=== PATIENT | female | born 1985 | race Caucasian/White ===

== ENCOUNTER 2019-08-03 22:55 | Emergency (ER) | payer OTHER ==
[2019-08-03 23:02] VITALS: BP 137/89; PULSE 85; TEMP 97.7; BMI 39.5
--- NOTE | 2019-08-04 10:40 | EKG ---
Test Reason : Blood Pressure : / mmHG Vent. Rate : 079 BPM Atrial Rate : 079 BPM P-R Int : 162 ms QRS Dur : 090 ms QT Int : 362 ms P-R-T Axes : 051 025 033 degrees QTc Int : 415 ms NORMAL SINUS RHYTHM NORMAL ECG NO PREVIOUS ECGS AVAILABLE Confirmed by YECENIA CHING, SUNSHINE ([id number]) on 08/04/2019 10:39:54 AM Referred By: Confirmed By:SUNSHINE KEENE MD
== END 2019-08-04 00:27 | disposition left against medical advice (07) ==
LOC: JER 22:55
DX: Z53.21 Procedure and treatment not carried out due to patient leaving prior to being seen by health care provider (principal)
CPT/HCPCS: 93005; 93010; 99281-25

== ENCOUNTER 2019-08-29 16:10 | Emergency (ER) | payer OTHER ==
[2019-08-29 16:17] VITALS: BP 115/76; PULSE 80; TEMP 97.9; BMI 39.5
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
== END 2019-08-29 17:57 | disposition home or self-care (01) ==
LOC: JERFT 16:10
DX: M54.2 Cervicalgia (principal); M25.561 Pain in right knee; M25.562 Pain in left knee; V43.62XA Car passenger injured in collision with other type car in traffic accident, initial encounter; Y92.414 Local residential or business street as the place of occurrence of the external cause; Y93.89 Activity, other specified; Y99.8 Other external cause status
CPT/HCPCS: 99281-25

== ENCOUNTER 2019-11-08 19:22 | Emergency (ER) | payer OTHER ==
[2019-11-08 20:19] VITALS: BMI 40.6
--- NOTE | 2019-11-08 20:26 | PDOC ---
Rapid Medical Evaluation Chief Complaint: Chest Pain Time Seen by Provider: 11/08/19 20:15 Medical Evaluation: Allergies Allergy/AdvReac Type Severity Reaction Status Date / Time No Known Allergies Allergy Verified 11/08/19 20:19 Vital Signs Temp Pulse Resp BP Pulse Ox 99.0 F 100 H 22 H 119/73 100 11/08/19 20:17 11/08/19 20:17 11/08/19 20:17 11/08/19 20:17 11/08/19 20:17 11/08/19 20:25 I have performed a brief in-person evaluation of this patient. The patient presents with a chief complaint of: CP. Morbidly obesed. Pertinent physical exam findings:HR 100 w/ RR 22 I have ordered the following: ekg/cxr The patient will proceed to the ED for further evaluation Discharge Disposition - Diagnosis Chest pain Qualifiers: Chest pain type: unspecified Qualified Code(s): R07.9 - Chest pain, unspecified - Referrals - Patient Instructions - Post Discharge Activity
[2019-11-08] MEDS ORDERED: ASPIRIN 325 MG ENTERIC COATED TABLET (FP) PO ONE (21:58)
--- NOTE | 2019-11-08 21:58 | PDOC ---
History of Present Illness - General Chief Complaint: Chest Pain Stated Complaint: CHEST PAIN/RADIATING TO LEFT ARM Time Seen by Provider: 11/08/19 20:15 History Source: Patient - History of Present Illness Initial Comments: 11/08/19 22:14 Ms. Caban is a 34 y/o woman w/no PMH p/w one day of chest pain. 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 She reports standing up and stepping outside for air, and shortly after began to experience 7/10 chest pain radiating to her L arm and up her L neck. She reports having similar previous episodes attributed to anxiety, but that this felt worse than prior events. She denies any hx of DVTs or PEs. She denies any pain or sob at this time. Past History - Past Medical History Allergies/Adverse Reactions: Allergies Allergy/AdvReac Type Severity Reaction Status Date / Time No Known Allergies Allergy Verified 11/08/19 20:19 Home Medications: Ambulatory Orders Cyclobenzaprine HCl 10 mg PO HS #10 tablet 08/29/19 Diclofenac Sodium [Voltaren -] 75 mg PO BID #20 tablet. 08/29/19 CVA: No COPD: No - Psycho Social/Smoking Cessation Hx Smoking History: Never smoked Have you smoked in the past 12 months: No Information on smoking cessation initiated: No Hx Alcohol Use: No Drug/Substance Use Hx: No Review of Systems - Review of Systems Able to Perform ROS?: Yes Comments:: 11/08/19 23:07 GENERAL/CONSTITUTIONAL: No fever or chills. No weakness. HEAD, EYES, EARS, NOSE AND THROAT: No change in vision. No ear pain or discharge. No sore throat. CARDIOVASCULAR: Chest pain, shortness of breath RESPIRATORY: No cough, wheezing, or hemoptysis. GASTROINTESTINAL: No nausea, vomiting, diarrhea or constipation. GENITOURINARY: No dysuria, frequency, or change in urination. MUSCULOSKELETAL: No joint or muscle swelling or pain. No neck or back pain. SKIN: No rash NEUROLOGIC: No headache, vertigo, loss of consciousness, or change in strength/s ensation. ENDOCRINE: No increased thirst. No abnormal weight change HEMATOLOGIC/LYMPHATIC: No anemia, easy bleeding, or history of blood clots. ALLERGIC/IMMUNOLOGIC: No hives or skin allergy. *Physical Exam - Vital Signs Last Vital Signs Temp Pulse Resp BP Pulse Ox 99.0 F 100 H 22 H 119/73 100 11/08/19 20:17 11/08/19 20:17 11/08/19 20:17 11/08/19 20:17 11/08/19 20:17 - Physical Exam 11/08/19 23:08 GENERAL: Awake, alert, and fully oriented, in no acute distress HEAD: No signs of trauma, normocephalic, atraumatic EYES: PERRLA, EOMI, sclera anicteric, conjunctiva clear ENT: Auricles normal inspection, hearing grossly normal, nares patent, oropharynx clear without exudates. Moist mucosa NECK: Normal ROM, supple, no lymphadenopathy, JVD, or masses LUNGS: No distress, speaks full sentences, clear to auscultation bilaterally HEART: Tenderness over chest wall. Regular rate and rhythm, normal S1 and S2, no murmurs, rubs or gallops, peripheral pulses normal and equal bilaterally. ABDOMEN: Soft, nontender, normoactive bowel sounds. No guarding, no rebound. No masses EXTREMITIES : Normal inspection, Normal range of motion, no edema. No clubbing or cyanosis NEUROLOGICAL: Cranial nerves II through XII grossly intact. Normal speech, normal gait, no focal sensorimotor deficits SKIN: Warm, Dry, normal turgor, no rashes or lesions noted Heart Score/ECG Review - History History: Moderately suspicious - Electrocardiogram EKG: Normal - Age Age: </= 45 - Risk Factors Risk Factors Heart Score: Yes Hx Obesity Based on the list above the patient has:: 1-2 risk factors - Troponin Troponin: </= normal limit - Score Heart Score - Total: 2 ED Treatment Course - LABORATORY CBC & Chemistry Diagram: 11/08/19 22:20 11/08/19 22:20 Medical Decision Making - Medical Decision Making 11/08/19 23:09 34F w/no PMH p/w one day of chest tightness, sob, now resolved. PERC - 0. Ddx includes ACS, MSK pain, anxiety. PE unlikely given PERC score. Plan: CBC CMP EKG CXR Troponin ASA 324 mg Dispo: Pending troponin, likely discharge --- CBC - wnl CMP - wnl Troponin - negative 11/08/19 23:36 Discussed results with patient. She refuses XR, and will follow up with her PCP in the next 2-3 days. 11/09/19 01:15 Repeat trop - negative Plan for discharge Discharge - Discharge Information Problems reviewed: Yes Clinical Impression/Diagnosis: Chest pain Qualifiers: Chest pain type: unspecified Qualified Code(s): R07.9 - Chest pain, unspecified Condition: Stable Disposition: HOME - Admission No - Follow up/Referral - Patient Discharge Instructions Patient Printed Discharge Instructions: DI for Atypical Chest Pain, DI for Chest Pain Additional Instructions: You were seen in the ER for chest pain. Your bloodwork was normal - no signs of a heart attack at this time. We are recommending a chest X-ray as well. Please be sure to follow up with your primary care provider as soon as possible, in the next 2-3 days. Return to the ER if you develop severe chest pain, difficulty breathing, weakness. - Post Discharge Activity
[2019-11-08] MEDS ORDERED: ASPIRIN 325 MG ENTERIC COATED TABLET (FP) ONE (22:12)
--- NOTE | 2019-11-08 22:18 | PDOC ---
Attending Attestation - Resident Resident Name: Stewart Larsen - ED Attending Attestation I have performed the following: I have examined & evaluated the patient, The case was reviewed & discussed with the resident, I agree w/resident's findings & plan - HPI HPI: 11/08/19 23:49 see resident hpi - Physicial Exam PE: 11/08/19 23:50 see resident exam - Medical Decision Making 11/08/19 23:50 34-year-old female with an episode of chest pain possibly associated with anxiety now resolved EKG is within normal limits Plan for troponin x2, if negative will DC with outpatient follow-up
[2019-11-08 22:31] LABS: EOS % 1.6 % (0-4.5); HEMATOCRIT 36.1 % (32.4-45.2); HEMOGLOBIN 12.1 GM/dL (10.7-15.3); MCH 27.9 pg (25.7-33.7); MCHC 33.5 g/dl (32.0-36.0); MEAN CELL VOLUME 83.5 fl (80-96); MEAN PLT VOLUME 10.9 fl (7.5-11.1); MONO % 8.3 % (3.8-10.2); NEUT % 51.1 % (42.8-82.8); PLATELET COUNT 202 K/MM3 (134-434); RBC 4.32 M/mm3 (3.60-5.2); RDW 15.8 % (11.6-15.6); WHITE BLOOD COUNT 5.5 K/mm3 (4.0-10.0)
[2019-11-08 22:39] LABS: INR 1.18 (0.83-1.09); PROTHROMBIN TIME (PATIENT) 13.9 SEC (9.7-13.0)
[2019-11-08 23:10] LABS: ALBUMIN 3.6 g/dl (3.4-5.0); ALK PHOS 45 U/L (45-117); ANION GAP 5 MMOL/L (8-16); BILIRUBIN,TOTAL 0.6 mg/dL (0.2-1); BLOOD UREA NITROGEN 16.8 mg/dL (7-18); CALCIUM 9.1 mg/dL (8.5-10.1); CHLORIDE 103 mmol/L (98-107); CO2 28 mmol/L (21-32); CREATININE 0.9 mg/dL (0.55-1.3); GLUCOSE,RANDOM 98 mg/dL (74-106); POTASSIUM 4.5 mmol/L (3.5-5.1); SGOT/AST 16 U/L (15-37); SGPT/ALT 28 U/L (13-61); SODIUM 136 mmol/L (136-145); TOT PROT 7.5 g/dl (6.4-8.2)
[2019-11-08 23:40] VITALS: BP 113/62; PULSE 82; TEMP 98.2
--- NOTE | 2019-11-09 11:01 | EKG ---
Test Reason : Blood Pressure : / mmHG Vent. Rate : 098 BPM Atrial Rate : 098 BPM P-R Int : 162 ms QRS Dur : 090 ms QT Int : 336 ms P-R-T Axes : 037 013 024 degrees QTc Int : 428 ms NORMAL SINUS RHYTHM NORMAL ECG WHEN COMPARED WITH ECG OF 03-AUG-2019 23:06, NO SIGNIFICANT CHANGE WAS FOUND Confirmed by Rafal Hayes MD ([id number]) on 11/09/2019 11:00:36 AM Referred By: Confirmed By:Rafal Hayes MD
== END 2019-11-09 01:30 | disposition home or self-care (01) ==
LOC: JER 19:22
DX: R07.9 Chest pain, unspecified (principal); E66.01 Morbid (severe) obesity due to excess calories; Z68.41 Body mass index [BMI] 40.0-44.9, adult
CPT/HCPCS: 36415; 80053; 82550; 84484; 85025; 85610; 85730; 93005; 93010; 99284-25

== ENCOUNTER 2020-03-18 06:48 | Emergency (ER) | payer OTHER ==
[2020-03-18 07:18] VITALS: TEMP 97.8; BMI 31.6
--- NOTE | 2020-03-18 07:43 | PDOC ---
History of Present Illness - General Chief Complaint: Migraine Headache Stated Complaint: CLUSTER HEADACHE Time Seen by Provider: 03/18/20 07:22 - History of Present Illness Initial Comments: Ashley Irizarry is a 34 y/o female with PMH significant for cluster headaches presenting today with headache. Reports left sided parietal headache and left retro-orbital stabbing pain. Reports that this started a week ago. She has not had cluster headaches for the past several years. She was prescribed sumatriptan and ergotamine but has not been able to get these filled due to not having a PCP. Last cluster headache episode was over 3-4 years ago. Headache starts at 5am every day. No fever. Reports nausea and vomiting several times over the past week. No chest pain/shortness of breath. No vision changes. No fall. No neck pain. No abdominal pain. No jaw claudication. Past History - Medical History Allergies/Adverse Reactions: Allergies Allergy/AdvReac Type Severity Reaction Status Date / Time No Known Allergies Allergy Verified 03/18/20 07:10 Home Medications: Ambulatory Orders Famotidine [Pepcid -] 20 mg PO DAILY #20 tablet 01/23/20 CVA: No COPD: No Other medical history: "cluster headaches" last attack @ 2014 - Immunization History Immunization Up to Date: Yes - Psycho-Social/Smoking History Smoking History: Never smoked Have you smoked in the past 12 months: No - Substance Abuse Hx (Audit-C & DAST Scrn) How often the patient has a drink containing alcohol: Monthly or less Score: In Men: 4 or > Positive; In Women: 3 or > Positive: 1 Screen Result (Pos requires Nsg. Audit-10AR): Negative In the last yr the pt used illegal drug/Rx for NonMed reason: No Score: Yes response is considered Positive: 0 Screen Result (Positive result requires Nsg. DAST-10): Negative Review of Systems - Review of Systems Comments:: GENERAL/CONSTITUTIONAL: No fever or chills. No weakness._ HEAD, EYES, EARS, NOSE AND THROAT: No change in vision. No change in hearing. No sore throat._ CARDIOVASCULAR: No chest pain or shortness of breath_ RESPIRATORY: Denies cough, hemoptysis_ GASTROINTESTINAL: Reports nausea and vomiting. No diarrhea or constipation._ GENITOURINARY: No dysuria, frequency, or change in urination._ MUSCULOSKELETAL: No joint or muscle swelling or pain. No neck or back pain._ SKIN: No rash_ NEUROLOGIC: Reports headache. No vertigo, loss of consciousness, or change in strength/sensation._ ENDOCRINE: No increased thirst. No abnormal weight change_ HEMATOLOGIC/LYMPHATIC: No anemia, easy bleeding, or history of blood clots._ ALLERGIC/IMMUNOLOGIC: No hives or skin allergy._ *Physical Exam - Vital Signs Last Vital Signs Temp Pulse Resp BP Pulse Ox 97.8 F 80 20 130/78 99 03/18/20 07:17 03/18/20 07:17 03/18/20 07:17 03/18/20 07:17 03/18/20 07:17 - Physical Exam GENERAL: Awake, alert, and oriented to person/place/time, in no acute distress_ HEAD: No signs of trauma, normocephalic, atraumatic. No temporal TTP. EYES: PERRLA, EOMI, sclera anicteric, conjunctiva clear. No nystagmus on far lateral gaze. ENT: Hearing grossly normal, nares patent, oropharynx clear without exudates. No uvular deviation. Moist mucosa_ NECK: Normal ROM, supple, no lymphadenopathy, JVD, or masses_ LUNGS: No distress, speaks in full sentences, clear to auscultation bilaterally _ HEART: Regular rate and rhythm, normal S1 and S2, no murmurs appreciated, peripheral pulses normal and equal bilaterally._ ABDOMEN: Soft, nontender, normoactive bowel sounds. No guarding, no rebound. No masses_ EXTREMITIES: Normal inspection, Normal range of motion, no edema. No clubbing or cyanosis_ NEUROLOGICAL: Mental status: A/Ox3 CN II-XII tested and intact. Sensation intact to sharp/dull differentiation in all extremities. Motor: Normal tone and bulk. No abnormal movements appreciated. No pronator drift. Strength tested and 5/5 in bilateral wrist flexion/extension, elbow flexion/extension, shoulder abduction, straight leg raise, knee flexion/extension, ankle dorsiflexion/plantarflexion. Patient ambulates with a steady gait. Coordination: Finger to nose and heel to teran testing intact bilaterally. SKIN: Warm, Dry, normal turgor, no rashes or lesions noted_ Medical Decision Making - Medical Decision Making 03/18/20 08:31 34F presenting with left parietal headache and left retroorbital stabbing pain for the past week. Starts at 5am every day. Hx of migraine headaches. No change in quality. Previously prescribed sumatriptan and ergotamine but has not had PCP or cluster headache symptoms for several years. -O2 -imitrex 03/18/20 09:58 Pt reassessed. Reports resolution of headache. Repeat neuro exam wnl. Plan to d/c home with PCP f/u and neuro f/u. All questions answered. Return precautions given. Pt verbalized understanding and agreement with plan. Discharge - Discharge Information Problems reviewed: Yes Clinical Impression/Diagnosis: Cluster headache Qualifiers: Headache chronicity pattern: episodic headache Intractability: not intractable Qualified Code(s): G44.019 - Episodic cluster headache, not intractable Condition: Stable - Admission No - Follow up/Referral Referrals: Zandra Plascencia MD [Primary Care Provider] - Oumar Torre MD [Staff Physician] - Faheem Restrepo MD [Staff Physician] - [facility] [place] [facility] [place] Group] - Patient Discharge Instructions Patient Printed Discharge Instructions: DI for Cluster Headache - Post Discharge Activity
[2020-03-18] MEDS ORDERED: SUMATRIPTAN SUCCINATE 6 MG/0.5 ML VIAL SQ ONE (08:02)
[2020-03-18] MEDS ORDERED: SUMATRIPTAN SUCCINATE 6 MG/0.5 ML VIAL ONE (08:09)
--- NOTE | 2020-03-18 08:10 | PDOC ---
Attending Attestation - Resident Resident Name: CornellRafal - ED Attending Attestation I have performed the following: I have examined & evaluated the patient, The case was reviewed & discussed with the resident, I agree w/resident's findings & plan, Exceptions are as noted - HPI HPI: 03/18/20 08:07 34YOF with h/o cluster headaches and obesity, who p/w left-sided WAGONER behind her left eye similar to prior episodes, episodic now for the past week. She states she has not had headaches for about the past 3-4 years, but over the past several days she has had this headache every night similar to her prior h/o cluster headaches. It has been associated with 2 episodes NBNB vomiting, similar to prior headaches as well, but no f/c, chest pain, neck pain, back pain, abdominal pain, dysuria, vaginal bleeding/discharge, dizziness/lightheadedness, vision problems, speech problems, difficulty balancing or walking, n/t/w focally, or other symptoms. She previously saw a neurologist but has not been seeing any doctors for the past 4 years. 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 - Physicial Exam PE: 03/18/20 08:09 GENERAL: nontoxic-appearing, A/Ox4, no distress, answers questions appropriately, obese, very pleasant HEENT: PERRLA, EOMI, moist mucous membranes NECK/BACK: no midline ttp, no spinal stepoff or deformity, no hematoma, full ROM, neck supple CARDIOVASCULAR: regular rate/rhythm, no MGR, strong peripheral pulses, capillary refill <2 seconds, extremities wwp, no edema LUNGS/RESPIRATORY: no respiratory distress, CTAB GI/ABDOMEN: symmetric [id number]-[id number], normoactive BS, soft, no ttp, no midline pulsatile masses : no CVA tenderness MSK/EXTREMITIES: no muscle atrophy, no acute deformity SKIN: warm and dry, no pallor, no jaundice, no rash, no pathologic-appearing bruising, no skin breakdown, no cuts, no lesions NEUROLOGICAL: GCS 15, CN II-XII grossly intact, 5/5 strength proximally and distally, no facial droop, normal gait - Medical Decision Making 03/18/20 08:08 34YOF p/w headache, no reported mechanism for injury, no new red flag symptoms (see HPI). WAGONER not worse on awakening in the AM, no B symptoms, trauma, fever, syncope, vision loss, n/t/w focally, sudden onset, etc. Initial Vital Signs Temp Pulse Resp BP Pulse Ox 97.8 F 80 20 130/78 99 03/18/20 07:17 03/18/20 07:17 03/18/20 07:17 03/18/20 07:17 03/18/20 07:17 DDX IBNLT primary WAGONER syndrome (tension/migraine/cluster/other incl. primary cough WAGONER, exertional WAGONER, postcoital WAGONER), trigeminal neuralgia, zoster, SAH (chad. sudden onset), venous sinus thrombosis (chad. OCP//menstruating), subdural or epidural hematoma (chad. after trauma or childbirth), ruptured/acutely expanded aneurysm, preeclampsia/eclampsia, encephalitis, meningitis, glaucoma, atypical PNA, idiopathic intracranial hypertension, GCA (uncommon <50 yo), mass lesion, brain metastasis (chad. known CA Pts and/or WAGONER with increasing severity/frequency), brain abscess (chad. immunocompromised Pts), DKA, CO poisoning, etc. W/U ordered: None at this time, HCT not indicated and patient does not feel strongly about it either. TX ordered: 100% O2, sumatriptan Last Vital Signs Temp Pulse Resp BP Pulse Ox 97.8 F 72 20 125/81 100 03/18/20 07:17 03/18/20 09:58 03/18/20 09:58 03/18/20 09:58 03/18/20 09:58 This Pt has gotten significant relief of symptoms while in the ED. On last reassessment, vitals are wnl, pain is reasonably controlled, and exam is benign. Workup is not concerning for emergency-level pathology at this time. This Pt is appropriate for discharge home w/ close outpatient f/u. She is comfortable with this plan. She will take Motrin and/or Tylenol for pain, Rx given for 1 week of sumatriptan in case she needs it She will follow up with new PCP this week, referral information given for [facility]. Referral given for Neurology for f/u. Specific return precautions are discussed and they will come back to the ER if necessary. Discharge - Discharge Information Problems reviewed: Yes Clinical Impression/Diagnosis: Headache Qualifiers: Headache type: unspecified Headache chronicity pattern: unspecified pattern Intractability: not intractable Qualified Code(s): R51 - Headache Condition: Stable Disposition: HOME - Admission No - Additional Discharge Information Prescriptions: Sumatriptan Succinate [Imitrex -] 100 mg PO ONCE PRN 7 Days #14 tablet PRN Reason: Headache - Follow up/Referral Referrals: [facility] [place] [facility] [place]Provider Group] Oumar Torre MD [Staff Physician] - Faheem Restrepo MD [Staff Physician] - Zandra Plascencia MD [Primary Care Provider] - - Patient Discharge Instructions Patient Printed Discharge Instructions: DI for Cluster Headache Additional Instructions: Please take sumatriptan 100 mg once a day as needed for your cluster headache. Please make a follow up appointment with your primary care doctor and a neurologist (referrals provided here). If you experience any new, worsening, or concerning symptoms, including sudden or worsening headache, nausea/vomiting, fever, change in headache, loss of balance, loss of sensation, numbness, tingling, or any other concerns, please return to the emergency room. - Post Discharge Activity
[2020-03-18 09:59] VITALS: BP 125/81; PULSE 72
== END 2020-03-18 10:57 | disposition home or self-care (01) ==
LOC: JER 06:48
DX: G44.019 Episodic cluster headache, not intractable (principal)
CPT/HCPCS: 99284-25

== ENCOUNTER 2020-07-26 06:40 | Emergency (ER) | payer OTHER ==
[2020-07-26 06:59] VITALS: TEMP 98.1; BMI 36.5
[2020-07-26] MEDS ORDERED: ACETAMINOPHEN 325 MG TABLET (FP) PO ONE (07:41)
[2020-07-26] MEDS ORDERED: RANITIDINE HCL 150 MG/10 ML UNIT-DOSE PO ONE (07:41)
[2020-07-26] MEDS ORDERED: MAG HYDROX/AL HYDROX/SIMETH -MYLANTA- ORAL SUSPENSION PO ONE (07:41)
[2020-07-26] MEDS ORDERED: PANTOPRAZOLE 40 MG TABLET PO ONE (08:05)
[2020-07-26] MEDS ORDERED: ACETAMINOPHEN 325 MG TABLET (FP) ONE (08:05)
[2020-07-26] MEDS ORDERED: MAG HYDROX/AL HYDROX/SIMETH 30 ML UNIT-DOSE CUP ONE (08:05)
[2020-07-26] MEDS ORDERED: PANTOPRAZOLE 40 MG TABLET ONE (08:06)
[2020-07-26 09:15] LABS: BASO % 0.6 % (0-2.0); EOS % 2.4 % (0-4.5); HEMATOCRIT 38.8 % (32.4-45.2); HEMOGLOBIN 12.8 GM/dL (10.7-15.3); LYMPH % 36.1 % (8-40); MCH 27.9 pg (25.7-33.7); MEAN CELL VOLUME 84.4 fl (80-96); MEAN PLT VOLUME 11.9 fl (7.5-11.1); MONO % 10.2 % (3.8-10.2); NEUT % 50.7 % (42.8-82.8); PLATELET COUNT 202 K/MM3 (134-434); RDW 15.9 % (11.6-15.6); WHITE BLOOD COUNT 5.5 K/mm3 (4.0-10.0)
[2020-07-26 09:40] LABS: CHLORIDE 104 mmol/L (98-107); POTASSIUM 4.4 mmol/L (3.5-5.1); SODIUM 137 mmol/L (136-145)
[2020-07-26 09:42] LABS: ALBUMIN 3.8 g/dl (3.4-5.0); BLOOD UREA NITROGEN 16.6 mg/dL (7-18); CALCIUM 9.2 mg/dL (8.5-10.1)
[2020-07-26 09:43] LABS: ANION GAP 5 MMOL/L (8-16); CO2 29 mmol/L (21-32); GLUCOSE,RANDOM 93 mg/dL (74-106)
[2020-07-26 09:46] LABS: CREATININE 0.8 mg/dL (0.55-1.3); SGOT/AST 14 U/L (15-37); SGPT/ALT 24 U/L (13-61)
[2020-07-26 09:47] LABS: BILIRUBIN,TOTAL 0.4 mg/dL (0.2-1); TOT PROT 7.8 g/dl (6.4-8.2)
[2020-07-26 09:49] LABS: ALK PHOS 41 U/L (45-117)
[2020-07-26 12:02] VITALS: BP 118/76; PULSE 75
== END 2020-07-26 12:10 | disposition home or self-care (01) ==
LOC: JER 06:40
DX: K29.70 Gastritis, unspecified, without bleeding (principal)
CPT/HCPCS: 36415; 71046-TC-FY; 80053; 83690; 84484; 84703; 85025; 93005; 93010; 99285-25; C9803; U0003

== ENCOUNTER 2020-08-03 18:49 | Emergency (ER) | payer OTHER ==
[2020-08-03 19:00] VITALS: TEMP 97.9; BMI 36.5
[2020-08-03] MEDS ORDERED: LACTATED RINGERS SOLUTION 1000 ML INFUS.BAG IV ONE (20:47)
[2020-08-03 21:03] LABS: EPI CELLS 13 /uL (0-25.1); HYALINE CASTS 0 /uL (0-3.1); PH,URINE 6.5 (5.0-8.0); URINE APPEARANCE CLEAR; URINE BACTERIA 8406 /uL (0-1359); URINE BILIRUBIN NEGATIVE (NEGATIVE); URINE COLOR YELLOW; URINE GLUCOSE (UA) NEGATIVE (NEGATIVE); URINE KETONE NEGATIVE (NEGATIVE); URINE LEUK ESTERASE 1+ (NEGATIVE); URINE NITRITE POSITIVE (NEGATIVE); URINE PROTEIN NEGATIVE (NEGATIVE); URINE RBC 8 /uL (0-23.9); URINE UROBILINOGEN 0.2 mg/dL (0.2-1.0); URINE WBC 33 /uL (0-25.8)
[2020-08-03 21:10] LABS: HEMATOCRIT 35.3 % (32.4-45.2); HEMOGLOBIN 11.7 GM/dL (10.7-15.3); MCH 27.8 pg (25.7-33.7); MCHC 33.1 g/dl (32.0-36.0); MEAN PLT VOLUME 11.8 fl (7.5-11.1); PLATELET COUNT 192 K/MM3 (134-434); RDW 15.7 % (11.6-15.6); WHITE BLOOD COUNT 5.8 K/mm3 (4.0-10.0)
[2020-08-03 21:40] LABS: INR 1.13 (0.83-1.09); PROTHROMBIN TIME (PATIENT) 13.9 SEC (9.7-13.0)
[2020-08-03 21:43] LABS: ACTIVATED PTT 32.3 SECONDS (25.2-36.5)
[2020-08-03 21:45] LABS: POTASSIUM 4.2 mmol/L (3.5-5.1)
[2020-08-03 21:46] LABS: CALCIUM 9.6 mg/dL (8.5-10.1)
[2020-08-03 21:47] LABS: ALBUMIN 3.7 g/dl (3.4-5.0); BLOOD UREA NITROGEN 20.9 mg/dL (7-18)
[2020-08-03 21:50] LABS: CREATININE 0.8 mg/dL (0.55-1.3)
[2020-08-03 21:52] LABS: BILIRUBIN,TOTAL 0.4 mg/dL (0.2-1); TOT PROT 7.7 g/dl (6.4-8.2)
[2020-08-03] MEDS ORDERED: CEPHALEXIN MONOHYDRATE 500 MG CAPSULE (UD) PO ONE (21:57)
[2020-08-03] MEDS ORDERED: CEPHALEXIN MONOHYDRATE 500 MG CAPSULE (UD) ONE (22:04)
[2020-08-03 22:15] VITALS: BP 119/81; PULSE 74
== END 2020-08-03 22:15 | disposition home or self-care (01) ==
LOC: JER 18:49
DX: K62.5 Hemorrhage of anus and rectum (principal); N39.0 Urinary tract infection, site not specified
CPT/HCPCS: 36415; 80053; 81003; 82272; 84703; 85027; 85610; 85730; 99284-25

== ENCOUNTER 2020-12-22 21:22 | Emergency (ER) | payer OTHER ==
[2020-12-22 21:25] VITALS: TEMP 97; BMI 37.5
[2020-12-22] MEDS ORDERED: LORazepam 2 MG TABLET PO ONE (21:35)
[2020-12-22] MEDS ORDERED: LORazepam 1 MG TABLET ONE (21:42)
[2020-12-22 22:10] LABS: BASO % 0.5 % (0-2.0); EOS % 3.7 % (0-4.5); HEMATOCRIT 36.8 % (32.4-45.2); HEMOGLOBIN 12.4 GM/dL (10.7-15.3); LYMPH % 62.5 % (8-40); MCH 28.3 pg (25.7-33.7); MCHC 33.6 g/dl (32.0-36.0); MEAN CELL VOLUME 84.1 fl (80-96); MEAN PLT VOLUME 11.5 fl (7.5-11.1); MONO % 7.1 % (3.8-10.2); NEUT % 26.2 % (42.8-82.8); PLATELET COUNT 191 K/MM3 (134-434); RBC 4.38 M/mm3 (3.60-5.2); RDW 15.8 % (11.6-15.6); WHITE BLOOD COUNT 6.2 K/mm3 (4.0-10.0)
[2020-12-22 22:46] LABS: CHLORIDE 107 mmol/L (98-107); SODIUM 139 mmol/L (136-145)
[2020-12-22 22:48] LABS: ANION GAP 11 MMOL/L (8-16); BLOOD UREA NITROGEN 14.5 mg/dL (7-18); CALCIUM 9.1 mg/dL (8.5-10.1); CO2 20 mmol/L (21-32)
[2020-12-22 22:49] LABS: ALBUMIN 3.7 g/dl (3.4-5.0); GLUCOSE,RANDOM 113 mg/dL (74-106)
[2020-12-22 22:52] LABS: CREATININE 1.1 mg/dL (0.55-1.3); SGOT/AST 36 U/L (15-37); SGPT/ALT 25 U/L (13-61)
[2020-12-22 22:53] LABS: BILIRUBIN,TOTAL 0.6 mg/dL (0.2-1)
[2020-12-22 22:54] LABS: ALK PHOS 43 U/L (45-117)
[2020-12-22 23:07] LABS: PLATELET ESTIMATE ADEQUATE
[2020-12-23 00:33] VITALS: BP 113/60; PULSE 93
== END 2020-12-23 00:38 ==
LOC: JER 21:22
DX: F12.90 Cannabis use, unspecified, uncomplicated (principal)
CPT/HCPCS: 36415; 71046-TC-FY; 71275-TC; 80053; 82550; 82553; 84484; 84703; 85025; 85379; 93005; 93010; 99285-25; Q9967

== ENCOUNTER 2021-05-02 06:43 | Emergency (ER) | payer OTHER ==
[2021-05-02 07:03] VITALS: BP 106/76; PULSE 85; TEMP 98.8; BMI 28.7
== END 2021-05-02 07:50 | disposition left against medical advice (07) ==
LOC: JER 06:43
DX: R05 Cough (principal); R06.02 Shortness of breath
CPT/HCPCS: 99281-25

== ENCOUNTER 2021-05-06 00:37 | Emergency (ER) | payer OTHER ==
[2021-05-06 00:45] VITALS: BP 115/88; PULSE 87; TEMP 98.5; BMI 37.5
[2021-05-06] MEDS ORDERED: IBUPROFEN 600 MG TABLET (FP) PO ONE ×2 (01:28→01:51)
[2021-05-06] MEDS ORDERED: DEXAMETHASONE 4 MG TABLET (FP) PO ONE (01:30)
[2021-05-06] MEDS ORDERED: DEXAMETHASONE 4 MG TABLET (FP) ONE ×2 (01:51)
== END 2021-05-06 02:00 | disposition home or self-care (01) ==
LOC: JER 00:37
DX: U07.1 COVID-19 (principal)
CPT/HCPCS: 99283-25

== ENCOUNTER 2021-05-06 06:59 | Emergency (ER) | payer OTHER ==
[2021-05-06 07:29] VITALS: TEMP 98.7; BMI 37.5
[2021-05-06] MEDS ORDERED: DEXAMETHASONE LIQUID 0.5 MG/5 ML PO ONE (08:11)
[2021-05-06] MEDS ORDERED: ALBUTEROL SO4 0.083% IH SOL 2.5 MG/3 ML VIAL.NEB. NEB ONE ×3 (08:11→09:25)
[2021-05-06] MEDS ORDERED: DEXAMETHASONE SOD PHOSPHATE 10 MG/1 ML VIAL ONE (08:27)
[2021-05-06] MEDS ORDERED: CASIRIVIMAB/IMDEVIMAB 10 ML in SODIUM CHLORIDE 100 ML IVPB ONE (09:37)
[2021-05-06] MEDS ORDERED: diphenhydrAMINE HCL 25 MG CAPSULE (FP) PO ONE ×3 (09:38→09:50)
[2021-05-06 11:01] LABS: HEMOGLOBIN 13.5 GM/dL (10.7-15.3); MCH 27.9 pg (25.7-33.7); MCHC 33.8 g/dl (32.0-36.0); MEAN CELL VOLUME 82.6 fl (80-96); PLATELET COUNT 161 10^3/uL (134-434); RBC 4.84 M/mm3 (3.60-5.2); RDW 16.4 % (11.6-15.6); WHITE BLOOD COUNT 2.5 K/mm3 (4.0-10.0)
[2021-05-06 11:22] LABS: ALBUMIN 3.8 g/dl (3.4-5.0); BLOOD UREA NITROGEN 8.8 mg/dL (7-18); CALCIUM 8.5 mg/dL (8.5-10.1)
[2021-05-06 11:26] LABS: CREATININE 0.9 mg/dL (0.55-1.3)
[2021-05-06 11:27] LABS: BILIRUBIN,TOTAL 0.4 mg/dL (0.2-1); TOT PROT 8.7 g/dl (6.4-8.2)
[2021-05-06 11:55] LABS: ANISOCYTOSIS 0; HELMET CELLS 0; HOWELL-JOLLY BODIES 0; MACROCYTOSIS 0; OVALOCYTE 0; PLATELET ESTIMATE NORMAL; ROULEAU 0; SICKELED CELLS 0; TARGET CELLS 0; TEAR DROP CELLS 0; TOXIC GRANULATION 0
[2021-05-06 13:05] VITALS: BP 120/81; PULSE 83
== END 2021-05-06 13:05 | disposition home or self-care (01) ==
LOC: JER 06:59
PROC: 3E0F7GC Introduction of Other Therapeutic Substance into Respiratory Tract, Via Natural or Artificial Opening (ICD-10-PCS; principal; 2021-05-06)
PROC: 3E033GC Introduction of Other Therapeutic Substance into Peripheral Vein, Percutaneous Approach (ICD-10-PCS; principal; 2021-05-06)
DX: U07.1 COVID-19 (principal)
CPT/HCPCS: 36415; 80053; 85025; 93005; 93010; 99284-25; M0240; Q0240

== ENCOUNTER 2021-09-03 02:24 | Emergency (ER) | payer OTHER ==
[2021-09-03 02:38] VITALS: BP 109/72; PULSE 83; TEMP 97.7; BMI 38.0
== END 2021-09-03 04:24 | disposition left against medical advice (07) ==
LOC: JER 02:24
DX: R11.10 Vomiting, unspecified (principal)
CPT/HCPCS: 99281-25

== ENCOUNTER 2021-09-10 01:54 | Emergency (ER) | payer OTHER ==
[2021-09-10 02:12] VITALS: BP 113/81; PULSE 81; TEMP 97.9; BMI 37.5
[2021-09-10] MEDS ORDERED: SODIUM CHLORIDE 0.9% 500 ML INFUS.BAG IV ONE (02:20)
[2021-09-10] MEDS ORDERED: ACETAMINOPHEN 1000 MG/100 ML BAG IVPB ONE (02:20)
[2021-09-10] MEDS ORDERED: IBUPROFEN 600 MG TABLET (FP) PO ONE ×2 (02:23→02:39)
[2021-09-10 03:02] LABS: BASO % 0.7 % (0-2.0); EOS % 2.3 % (0-4.5); HEMOGLOBIN 12.1 GM/dL (10.7-15.3); LYMPH % 37.1 % (8-40); MCH 28.1 pg (25.7-33.7); MCHC 33.6 g/dl (32.0-36.0); MEAN CELL VOLUME 83.6 fl (80-96); MEAN PLT VOLUME 11.2 fl (7.5-11.1); MONO % 15.5 % (3.8-10.2); NEUT % 44.4 % (42.8-82.8); PLATELET COUNT 181 10^3/uL (134-434); RBC 4.31 M/mm3 (3.60-5.2); RDW 15.4 % (11.6-15.6); WHITE BLOOD COUNT 3.6 K/mm3 (4.0-10.0)
[2021-09-10 03:19] LABS: CHLORIDE 106 mmol/L (98-107); SODIUM 139 mmol/L (136-145)
[2021-09-10 03:21] LABS: ALBUMIN 3.4 g/dl (3.4-5.0); CALCIUM 8.6 mg/dL (8.5-10.1)
[2021-09-10 03:22] LABS: ANION GAP 7 MMOL/L (8-16); BLOOD UREA NITROGEN 14.5 mg/dL (7-18); CO2 26 mmol/L (21-32); GLUCOSE,RANDOM 112 mg/dL (74-106)
[2021-09-10 03:24] LABS: CREATININE 0.9 mg/dL (0.55-1.3); SGOT/AST 14 U/L (15-37)
[2021-09-10 03:25] LABS: SGPT/ALT 26 U/L (13-61)
[2021-09-10 03:26] LABS: BILIRUBIN,TOTAL 0.2 mg/dL (0.2-1); TOT PROT 7.2 g/dl (6.4-8.2)
[2021-09-10 03:27] LABS: ALK PHOS 41 U/L (45-117)
== END 2021-09-10 04:17 | disposition home or self-care (01) ==
LOC: JER 01:54
PROC: 3E033NZ Introduction of Analgesics, Hypnotics, Sedatives into Peripheral Vein, Percutaneous Approach (ICD-10-PCS; principal; 2021-09-10)
DX: U07.1 COVID-19 (principal)
CPT/HCPCS: 36415; 71045-TC-FY; 80053; 82550; 84484; 85025; 87804; 87807; 93005; 93010; 96374; 99284-25; C9803-CS; U0003; U0005

== ENCOUNTER 2022-02-14 01:07 | Emergency (ER) | payer OTHER ==
[2022-02-14 01:45] VITALS: BP 104/74; PULSE 82; TEMP 98.1; BMI 38.5
[2022-02-14] MEDS ORDERED: ACETAMINOPHEN 1000 MG/100 ML BAG IVPB ONE (02:52)
[2022-02-14] MEDS ORDERED: SODIUM CHLORIDE 0.9% 500 ML INFUS.BAG IV ONE (02:52)
[2022-02-14] MEDS ORDERED: ACETAMINOPHEN INJECTION 100 ML IVPB ONE (03:06)
[2022-02-14 03:14] LABS: BASO % 0.8 % (0-2.0); EOS % 2.3 % (0-4.5); HEMOGLOBIN 11.3 GM/dL (10.7-15.3); LYMPH % 44.8 % (8-40); MCH 26.4 pg (25.7-33.7); MCHC 33.3 g/dl (32.0-36.0); MEAN CELL VOLUME 79.5 fl (80-96); MEAN PLT VOLUME 10.7 fl (7.5-11.1); NEUT % 42.1 % (42.8-82.8); PLATELET COUNT 205 10^3/uL (134-434); RBC 4.28 M/mm3 (3.60-5.2); RDW 15.9 % (11.6-15.6)
[2022-02-14 03:21] LABS: INR 1.15 (0.83-1.09); PROTHROMBIN TIME (PATIENT) 13.3 SEC (9.7-13.0)
[2022-02-14 03:23] LABS: ACTIVATED PTT 29.2 SECONDS (25.2-36.5)
[2022-02-14 03:27] LABS: CALCIUM 8.9 mg/dL (8.5-10.1)
[2022-02-14 03:28] LABS: ALBUMIN 3.4 g/dl (3.4-5.0); BLOOD UREA NITROGEN 24.9 mg/dL (7-18)
[2022-02-14 03:33] LABS: BILIRUBIN,TOTAL 0.3 mg/dL (0.2-1); TOT PROT 7.3 g/dl (6.4-8.2)
[2022-02-14 07:41] LABS: MAGNESIUM 1.9 mg/dL (1.8-2.4)
== END 2022-02-14 05:06 | disposition home or self-care (01) ==
LOC: JER 01:07
PROC: 3E0333Z Introduction of Anti-inflammatory into Peripheral Vein, Percutaneous Approach (ICD-10-PCS; principal; 2022-02-14)
DX: R00.2 Palpitations (principal)
CPT/HCPCS: 36415; 80053; 83735; 84443; 84484; 84703; 85025; 85610; 85730; 93005; 93010; 99284-25

== ENCOUNTER 2023-03-12 04:17 | Emergency (ER) | payer OTHER ==
[2023-03-12 04:25] VITALS: BP 144/82; PULSE 61; RESP 20; TEMP 98.1; BMI 39.5
[2023-03-12] MEDS ORDERED: MAG HYDROX/AL HYDROX/SIMETH 30 ML UNIT-DOSE CUP PO ONE (04:58)
[2023-03-12] MEDS ORDERED: SUCRALFATE 1 GM TABLET (FP) PO ONE (04:58)
[2023-03-12] MEDS ORDERED: SUCRALFATE 1 GM TABLET (FP) ONE (05:35)
[2023-03-12] MEDS ORDERED: MAG HYDROX/AL HYDROX/SIMETH 30 ML UNIT-DOSE CUP ONE (05:35)
== END 2023-03-12 06:14 | disposition home or self-care (01) ==
LOC: JER 04:17
DX: R07.89 Other chest pain (principal); F19.10 Other psychoactive substance abuse, uncomplicated
CPT/HCPCS: 71045-TC-FY; 93005; 93010; 99284-25

== ENCOUNTER 2023-06-16 16:41 | Emergency (ER) | payer OTHER ==
[2023-06-16 16:50] VITALS: BP 123/67; PULSE 83; RESP 16; TEMP 98.2; BMI 40.6
[2023-06-16 17:32] LABS: BASO % 0.5 % (0-2.0); HEMATOCRIT 39.5 % (32.4-45.2); HEMOGLOBIN 13.2 GM/dL (10.7-15.3); MCH 27.9 pg (25.7-33.7); MCHC 33.4 g/dl (32.0-36.0); MEAN CELL VOLUME 83.5 fl (80-96); MEAN PLT VOLUME 10.7 fl (7.5-11.1); MONO % 6.2 % (3.8-10.2); NEUT % 46.3 % (42.8-82.8); PLATELET COUNT 221 10^3/uL (134-434); RBC 4.73 M/mm3 (3.60-5.2); RDW 16.3 % (11.6-15.6); WHITE BLOOD COUNT 5.8 K/mm3 (4.0-10.0)
[2023-06-16 17:47] LABS: POTASSIUM 3.9 mmol/L (3.5-5.1)
[2023-06-16 17:49] LABS: ALBUMIN 3.5 g/dl (3.4-5.0); BLOOD UREA NITROGEN 13.1 mg/dL (7-18); CALCIUM 8.8 mg/dL (8.5-10.1)
[2023-06-16 17:52] LABS: CREATININE 0.8 mg/dL (0.55-1.3)
[2023-06-16 17:54] LABS: BILIRUBIN,TOTAL 0.4 mg/dL (0.2-1); TOT PROT 7.7 g/dl (6.4-8.2)
[2023-06-16] MEDS ORDERED: ACETAMINOPHEN 1000 MG/100 ML BAG IVPB ONE (18:44)
[2023-06-16] MEDS ORDERED: METOCLOPRAMIDE HCL INJECTION 10 MG/2 ML VIAL IVPUSH ONE (18:44)
[2023-06-16] MEDS ORDERED: METOCLOPRAMIDE HCL INJECTION 10 MG/2 ML VIAL ONE (19:32)
[2023-06-16] MEDS ORDERED: ACETAMINOPHEN INJECTION 100 ML IVPB ONE (19:32)
== END 2023-06-16 20:03 | disposition home or self-care (01) ==
LOC: JERFT 16:41
PROC: 3E033NZ Introduction of Analgesics, Hypnotics, Sedatives into Peripheral Vein, Percutaneous Approach (ICD-10-PCS; principal; 2023-06-16)
PROC: 3E033GC Introduction of Other Therapeutic Substance into Peripheral Vein, Percutaneous Approach (ICD-10-PCS; 2023-06-16)
DX: R51.9 Headache, unspecified (principal); H92.02 Otalgia, left ear; R09.81 Nasal congestion; R09.82 Postnasal drip; M79.10 Myalgia, unspecified site; R53.83 Other fatigue; K59.00 Constipation, unspecified; R68.89 Other general symptoms and signs; K06.8 Other specified disorders of gingiva and edentulous alveolar ridge; R63.5 Abnormal weight gain; E03.9 Hypothyroidism, unspecified; J01.20 Acute ethmoidal sinusitis, unspecified
CPT/HCPCS: 36415; 70486-TC; 80053; 84439; 84443; 84703; 85025; 86140; 86431; 86618; 99284-25

== ENCOUNTER 2023-07-12 01:04 | Emergency (ER) | payer OTHER ==
[2023-07-12 01:16] VITALS: BP 105/63; PULSE 110; RESP 20; TEMP 97.5; BMI 40.6
[2023-07-12] MEDS ORDERED: ONDANSETRON 4 MG TABLET PO ONE (02:25)
[2023-07-12] MEDS ORDERED: ONDANSETRON *ODT* 4 MG TABLET ONE (02:30)
== END 2023-07-12 03:02 | disposition home or self-care (01) ==
LOC: JER 01:04
DX: R11.0 Nausea (principal); F10.129 Alcohol abuse with intoxication, unspecified; R25.1 Tremor, unspecified
CPT/HCPCS: 82962; 99283-25

== ENCOUNTER 2023-09-13 06:44 | Emergency (ER) | payer OTHER ==
[2023-09-13 06:56] VITALS: BP 111/78; PULSE 77; RESP 18; TEMP 97.9; BMI 39.9
[2023-09-13] MEDS ORDERED: ALBUTEROL SO4 2.5/IPRATROPIUM 0.5 INH SOL 3 ML VIAL.NEB. NEB ONE ×2 (07:30→07:43)
== END 2023-09-13 08:33 | disposition home or self-care (01) ==
LOC: JER 06:44 → JERFT 06:44
PROC: 3E0F7GC Introduction of Other Therapeutic Substance into Respiratory Tract, Via Natural or Artificial Opening (ICD-10-PCS; principal; 2023-09-13)
DX: R05.9 Cough, unspecified (principal); R09.81 Nasal congestion; R68.83 Chills (without fever); J11.1 Influenza due to unidentified influenza virus with other respiratory manifestations
CPT/HCPCS: 99283-25

== ENCOUNTER 2023-11-13 01:04 | Emergency (ER) | payer OTHER ==
[2023-11-13 01:10] VITALS: BMI 35.4
[2023-11-13] MEDS ORDERED: DEXAMETHASONE SOD PHOSPHATE 10 MG/1 ML VIAL ONE (02:08)
[2023-11-13] MEDS ORDERED: METOCLOPRAMIDE HCL INJECTION 10 MG/2 ML VIAL ONE (02:08)
[2023-11-13] MEDS ORDERED: ACETAMINOPHEN INJECTION 100 ML IVPB ONE (02:09)
[2023-11-13] MEDS: SODIUM CHLORIDE 0.9% 500 ML INFUS.BAG IV ONE (02:25)
[2023-11-13] MEDS: ACETAMINOPHEN 1000 MG/100 ML BAG IVPB ONE (02:26)
[2023-11-13] MEDS: METOCLOPRAMIDE HCL INJECTION 10 MG/2 ML VIAL IVPB ONE (02:26)
[2023-11-13] MEDS: DEXAMETHASONE SOD PHOSPHATE 10 MG/1 ML VIAL IVPUSH ONE (02:26)
[2023-11-13 02:34] LABS: BASO % 0.4 % (0-2.0); EOS % 2.4 % (0-4.5); HEMATOCRIT 39.3 % (32.4-45.2); HEMOGLOBIN 13.5 GM/dL (10.7-15.3); LYMPH % 37.4 % (8-40); MCHC 34.2 g/dl (32.0-36.0); MEAN CELL VOLUME 84.6 fl (80-96); MEAN PLT VOLUME 11.2 fl (7.5-11.1); MONO % 12.9 % (3.8-10.2); NEUT % 46.9 % (42.8-82.8); PLATELET COUNT 164 10^3/uL (134-434); RBC 4.64 M/mm3 (3.60-5.2); RDW 16.5 % (11.6-15.6); WHITE BLOOD COUNT 5.1 K/mm3 (4.0-10.0)
[2023-11-13 03:17] LABS: POTASSIUM 3.9 mmol/L (3.5-5.1)
[2023-11-13 03:18] LABS: CALCIUM 9.1 mg/dL (8.5-10.1)
[2023-11-13 03:20] LABS: ALBUMIN 3.5 g/dl (3.4-5.0); BLOOD UREA NITROGEN 16.4 mg/dL (7-18)
[2023-11-13 03:22] LABS: CREATININE 0.8 mg/dL (0.55-1.3)
[2023-11-13 03:24] LABS: BILIRUBIN,TOTAL 0.5 mg/dL (0.2-1); TOT PROT 7.3 g/dl (6.4-8.2)
[2023-11-13 05:53] LABS: EPI CELLS >36 /uL (0-25.1); HYALINE CASTS 0 /uL (0-3.1); PH,URINE 6.5 (5.0-8.0); URINE APPEARANCE CLOUDY; URINE BACTERIA 2512 /uL (0-1359); URINE BILIRUBIN NEGATIVE (NEGATIVE); URINE COLOR YELLOW; URINE GLUCOSE (UA) NEGATIVE (NEGATIVE); URINE KETONE NEGATIVE (NEGATIVE); URINE LEUK ESTERASE 1+ (NEGATIVE); URINE NITRITE NEGATIVE (NEGATIVE); URINE PROTEIN NEGATIVE (NEGATIVE); URINE UROBILINOGEN 0.2 mg/dL (0.2-1.0); URINE WBC 144 /uL (0-25.8)
[2023-11-13 06:06] VITALS: BP 100/56; PULSE 79; RESP 16; TEMP 98
[2023-11-13] MEDS: NITROFURANTOIN MACROCRYSTAL 50 MG CAPSULE (FP) PO SCH (06:22)
[2023-11-13 08:45] LABS: URINE RBC 59 /uL (0-23.9)
== END 2023-11-13 06:38 | disposition home or self-care (01) ==
LOC: JER 01:04
PROC: 3E033NZ Introduction of Analgesics, Hypnotics, Sedatives into Peripheral Vein, Percutaneous Approach (ICD-10-PCS; principal; 2023-11-13)
PROC: 3E033GC Introduction of Other Therapeutic Substance into Peripheral Vein, Percutaneous Approach (ICD-10-PCS; 2023-11-13)
PROC: 3E033GC Introduction of Other Therapeutic Substance into Peripheral Vein, Percutaneous Approach (ICD-10-PCS; 2023-11-13)
DX: G44.009 Cluster headache syndrome, unspecified, not intractable (principal); N39.0 Urinary tract infection, site not specified
CPT/HCPCS: 36415; 70450-TC; 80053; 81003; 84703; 85025; 87086; 99284-25; J0131; J1100

== ENCOUNTER 2024-09-13 05:22 | Emergency (ER) | payer OTHER ==
[2024-09-13 05:47] VITALS: BP 124/84; PULSE 80; RESP 20; TEMP 98.4; BMI 38.4
[2024-09-13] MEDS ORDERED: ACETAMINOPHEN 325 MG TABLET (FP) ONE (08:13)
[2024-09-13] MEDS ORDERED: LIDOCAINE 4% PATCH TP ONE (08:13)
[2024-09-13 08:14] LABS: HCG,QUALITATIVE URINE Negative
[2024-09-13] MEDS: LIDOCAINE 4% PATCH TP ONE (08:17)
[2024-09-13] MEDS: ACETAMINOPHEN 325 MG TABLET (FP) PO ONE (08:17)
[2024-09-13 08:19] LABS: EPI CELLS >36 /uL (0-25.1); HYALINE CASTS 1 /uL (0-3.1); URINE APPEARANCE CLOUDY; URINE BACTERIA 8844 /uL (0-1359); URINE BILIRUBIN NEGATIVE (NEGATIVE); URINE COLOR YELLOW; URINE GLUCOSE (UA) NEGATIVE (NEGATIVE); URINE KETONE NEGATIVE (NEGATIVE); URINE LEUK ESTERASE 2+ (NEGATIVE); URINE NITRITE NEGATIVE (NEGATIVE); URINE PROTEIN NEGATIVE (NEGATIVE); URINE RBC 58 /uL (0-23.9); URINE UROBILINOGEN 0.2 mg/dL (0.2-1.0); URINE WBC 313 /uL (0-25.8)
[2024-09-13] MEDS ORDERED: KETOROLAC TROMETHAMINE 30 MG/1 ML VIAL ONE (08:34)
[2024-09-13] MEDS: KETOROLAC TROMETHAMINE 30 MG/1 ML VIAL IM ONE (08:35)
[2024-09-13] MEDS ORDERED: LIDOCAINE PATCH REMOVAL MC ONE (22:00)
== END 2024-09-13 09:34 | disposition home or self-care (01) ==
LOC: JER 05:22
PROC: 3E0133Z Introduction of Anti-inflammatory into Subcutaneous Tissue, Percutaneous Approach (ICD-10-PCS; principal; 2024-09-13)
DX: M54.16 Radiculopathy, lumbar region (principal)
CPT/HCPCS: 81003; 84703; 87086; 99284-25